=== PATIENT | female | born 1955 | race Caucasian/White ===

== ENCOUNTER → 2016-07-07 | Day surgery (SDC) | payer MEDICARE, BC ==
[~2016-07-07] MED LIST: ANTIDIARRHEAL2 MG PO; AUGMENTIN PO; CALCIUM 600 +1 EAC4; DAPTOMYCIN IV; DURAGESIC TOP; DURAGESIC75 MCG EXT; FOLIC ACID PO; LORTAB 10/500 T1 TAB PO; METHOTREXATE2.5 MG PO; NORVASC PO; PAXIL PO; PERCOCET 5-3251 TAB PO; PERCOCET10 PO; PRAMIPEXOLE DI0.5 MG PO; PRILOSEC PO; SILVADENE TOP; VASOTEC PO; VITAMIN C PO; VITAMIN D-32000 UNI1 PO
--- NOTE | ~2016-07-07 | OR ---
Unit #: [id number] #: [id number] Patient: BRIONNA FRITZ [id number] [address] [place], [place] [address] [id number] O MR#: [id number] NAME: BRIONNA FRITZ ROOM: Date of Procedure: 07/07/2016 Admission Date: 07/07/2016 Surgeon: Audi Ventura M.D. : 1955 Attending Physician: Audi Ventura M.D. Primary Care Physician: Nikita Becerra Jr., M.D. OPERATIVE REPORT PRIMARY CARE PHYSICIAN Nikita Becerra M.D. PREOPERATIVE DIAGNOSIS Colorectal cancer screening in an average-risk patient. PROCEDURE PERFORMED Colonoscopy up to cecum with excellent preparation and good visualization. POSTOPERATIVE DIAGNOSES Completely normal examination up to cecum. The quality of prep was excellent. The patient did not have any diverticula, polyps, or internal hemorrhoids. RECOMMENDATIONS Repeat colonoscopy in 10 years. SEDATION USED MAC. DESCRIPTION OF PROCEDURE Following detailed explanation of the potential risks and complications of a colonoscopy, namely perforation, bleeding, and complications related to sedation, the patient was brought to GI lab and laid in the left lateral decubitus position. A digital rectal examination was performed, which was normal. Lubricated tip of the Olympus video colonoscope was inserted through the anus and advanced under direct vision. The scope was advanced and passed up to sigmoid into descending colon. No diverticula were seen in this area. The scope tip was then navigated all the way up to cecum with visualization of the ileocecal valve and the appendiceal orifice. Preparation was excellent with good visualization and photodocumentation was obtained. Last few inches of the terminal ileum also visualized after intubation of the ileocecal valve and appeared normal. Successive segments of the colonic mucosa were examined upon withdrawal and appeared unremarkable. There being no polyps, mass lesions, AVMs, or diverticula. The patient did not have any hemorrhoids at anal verge. The scope was then withdrawn. The patient returned to the recovery area. She tolerated the procedure without any postprocedure complications. Dictated by... Audi Ventura M.D. Unit #: [id number] #: [id number] Patient: BRIONNA FRITZ MILAD/gonzalo TD: 07/08/2016 00:24 JOB #: [id number] Jens Jean-Baptiste M.D. OPERATIVE REPORT X Audi Ventura MD PROCEDURE OPERATIVE NOTE
== END | disposition home or self-care (01) ==
LOC: COPS 09:22
DX: Z12.11 Encounter for screening for malignant neoplasm of colon (principal); K21.9 Gastro-esophageal reflux disease without esophagitis; Z98.51 Tubal ligation status; Z98.890 Other specified postprocedural states